=== PATIENT | female | born 1965 | race Caucasian/White ===

== ENCOUNTER → 2017-03-30 | Outpatient (CLI) | payer OTHER ==
[~2017-03-30] MED LIST: 00186-0372-20 IH; DOXYCYCLINE 10100 MG PO; INFANTS AQU400 IU/ML PO; KLOR-CON 1010 MEQ PO; LASIX 20MG TABL20 MG PO; MUCINEX 60600 MG/TA1 PO; PERCOCET 325 MG1 TA2 PO; SINGULAIR 110 MG/TAB PO; ULTRAM 50MG TAB50 MG PO; ZYRTEC ALLERGY10 MG PO
[2017-04-01 13:51] LABS: IMMUNO G SUBCLASS 3 30.1 mg/dL (()); IMMUNO G SUBCLASS 4 39.5 mg/dL (())
== END ==
LOC: COL.LAB 15:39
PROVIDERS: Otolaryngology
DX: Z01.89 Encounter for other specified special examinations (principal)

== ENCOUNTER 2018-06-10 09:30 | Emergency (ER) | payer OTHER ==
[~2018-06-10] VITALS: Ht 170.2 cm; Wt 100.0 kg
[2018-06-10 09:36] VITALS: BP 153/97; TEMP 99
[2018-06-10] MEDS ORDERED: PREDNISONE20 MG PO (10:07)
[2018-06-10] MEDS ORDERED: CEFTIN500 MG PO (10:08)
[2018-06-10 11:09] VITALS: PULSE 101
== END 2018-06-10 11:10 | disposition home or self-care (01) ==
LOC: COL.ER 09:30
DX: R06.00 Dyspnea, unspecified (principal); T36.1X5A Adverse effect of cephalosporins and other beta-lactam antibiotics, initial encounter; K21.9 Gastro-esophageal reflux disease without esophagitis; G47.30 Sleep apnea, unspecified; Z88.1 Allergy status to other antibiotic agents; Z88.2 Allergy status to sulfonamides

== ENCOUNTER 2019-06-16 11:10 | Emergency (ER) | payer BC ==
[~2019-06-16] VITALS: Ht 170.2 cm; Wt 104.5 kg
[~2019-06-16 11:10] MED LIST changes: +CEFTIN500 MG PO; +PREDNISONE20 MG PO
[2019-06-16 11:23] VITALS: BP 114/58
[2019-06-16] MEDS ORDERED: PRILOTC PO (12:04)
[2019-06-16] MEDS ORDERED: NORCO 325 MG-51 TAB PO (13:14)
[2019-06-16 13:34] VITALS: PULSE 66; TEMP 98.1
== END 2019-06-16 14:21 | disposition home or self-care (01) ==
LOC: COL.ER 11:10
DX: S83.92XA Sprain of unspecified site of left knee, initial encounter (principal); J45.909 Unspecified asthma, uncomplicated; Z88.1 Allergy status to other antibiotic agents; X50.1XXA Overexertion from prolonged static or awkward postures, initial encounter

== ENCOUNTER 2020-03-12 16:42 | Emergency (ER) | payer BC ==
[~2020-03-12] VITALS: Ht 167.6 cm; Wt 104.5 kg
[~2020-03-12 16:42] MED LIST changes: +NORCO 325 MG-51 TAB PO; +PRILOTC PO
[2020-03-12 16:47] VITALS: TEMP 98.2
[2020-03-12] MEDS ORDERED: VITAMIN D32000 I1 PO (17:12)
[2020-03-12] MEDS ORDERED: PEPCID 20MG TAB20 MG PO (17:14)
[2020-03-12] MEDS ORDERED: NASACORT OTC NS (17:15)
[2020-03-12] MEDS ORDERED: KRILL OIL 3001 EACH PO (17:15)
[2020-03-12] MEDS ORDERED: PREDNISONE20 MG PO (17:43)
[2020-03-12 19:02] VITALS: BP 125/78; PULSE 83
== END 2020-03-12 19:02 | disposition home or self-care (01) ==
LOC: COL.ER 16:42
DX: T78.40XA Allergy, unspecified, initial encounter (principal); J45.909 Unspecified asthma, uncomplicated
CPT/HCPCS: J1200; J2930; J7030

== ENCOUNTER → 2021-03-10 | Outpatient (CLI) | payer BC ==
[~2021-03-10] MED LIST changes: +KRILL OIL 3001 EACH PO; +NASACORT OTC NS; +PEPCID 20MG TAB20 MG PO; +VITAMIN D32000 I1 PO
== END ==
LOC: MC.RAD 14:08
DX: Z12.31 Encounter for screening mammogram for malignant neoplasm of breast (principal)

== ENCOUNTER 2022-01-17 22:27 | Emergency (ER) | payer BC ==
[~2022-01-17] VITALS: Ht 167.6 cm; Wt 104.5 kg
[2022-01-17 22:34] VITALS: TEMP 98
[2022-01-17 23:00] LABS: BASO # 0.1 K/mm3 (0.0-0.2); BASO % 0.5 % (0.0-2.0); EOS # 0.2 K/mm3 (0.0-0.7); EOS % 1.6 % (0.0-4.0); GRAN # 7.2 K/mm3 (1.4-6.5); HEMATOCRIT 40.9 % (37.0-47.0); HEMOGLOBIN 13.9 g/dl (12.5-16.0); LYMPH # 3.4 K/mm3 (1.2-3.4); LYMPH % 29.3 % (20.0-51.0); MEAN CELL VOLUME 93 fl (80.0-100.0); MEAN CORPUSCULAR HEMOGLOBIN 32 pg (27-31); MEAN CORPUSCULAR HGB CONC 34 g/dl (33.0-37.0); MEAN PLATELET VOLUME 9.8 fl (7.4-10.4); MONO # 0.7 K/mm3 (0.1-0.6); MONO % 6.2 % (1.7-9.3); PLATELET COUNT 313 K/mm3 (130-400); RED BLOOD COUNT 4.39 M/mm3 (4.10-5.30); REDCELL DISTRIBUTION WIDTH-CV 12.9 % (11.5-14.5)
[2022-01-17 23:16] LABS: ALBUMIN 3.8 gm/dL (3.5-5.0); BILIRUBIN,TOTAL 0.2 mg/dL (0.2-1.2); C-REACTIVE PROTEIN 0.85 mg/dL (0.00-0.50); CALCIUM 9.3 mg/dL (8.4-10.2); CREATININE, serum 0.81 mg/dL (0.57-1.11); TOTAL PROTEIN 7.3 gm/dL (6.2-8.1)
[2022-01-18 00:29] LABS: COLLECTION METHOD CLEAN CATCH
[2022-01-18 00:34] LABS: MUCOUS Present (NOT PRESENT); PH 5 (5-8); SQUAMOUS EPITHELIAL 0-2 /hpf (0-10); URINE APPEARANCE Clear (CLEAR/HAZY); URINE BACTERIA Rare /hpf (NONE SEEN); URINE BILIRUBIN Negative (NEGATIVE); URINE BLOOD Negative (NEGATIVE); URINE COLOR Yellow (YELLOW); URINE GLUCOSE Negative (NEGATIVE); URINE KETONE Negative (NEGATIVE); URINE LEUKOCYTE ESTERASE Negative (NEGATIVE); URINE NITRATE Negative (NEGATIVE); URINE PROTEIN(semi-quant) Negative (NEGATIVE); URINE RBC 0-2 /hpf (0-2); URINE UROBILINOGEN Negative (NEGATIVE)
[2022-01-18 01:14] VITALS: BP 138/77; PULSE 79
== END 2022-01-18 01:27 | disposition home or self-care (01) ==
LOC: COL.ER 22:27
PROVIDERS: Family Medicine
DX: K80.50 Calculus of bile duct without cholangitis or cholecystitis without obstruction (principal)
CPT/HCPCS: J2270; J2405; J7120; Q9967

== ENCOUNTER → 2022-02-17 | Outpatient (CLI) | payer BC | LOC: COL.RAD 08:01 | DX: K80.20 Calculus of gallbladder without cholecystitis without obstruction (principal) ==

== ENCOUNTER 2022-03-18 08:18 | Day surgery (SDC) | payer BC ==
[~2022-03-18] VITALS: Ht 167.6 cm; Wt 101.6 kg
[2022-03-18] MEDS ORDERED: PROBIOTIC BLEN1 EACH PO (09:51)
[2022-03-18] MEDS ORDERED: METAMUCIL MUL0.52 GM PO (09:52)
[2022-03-18] MEDS ORDERED: VITAMIN B COMPL1 T16 PO (09:53)
[2022-03-18] MEDS ORDERED: PROVENTIL0.09 MG/A1 IH (09:54)
[2022-03-18] MEDS ORDERED: 00186-0372-20 IH (10:00)
[2022-03-18] MEDS ORDERED: NORCO 325 MG-51 TAB PO (11:11)
[2022-03-18 11:52] VITALS: BP 129/66; PULSE 79; TEMP 98.3
[2022-03-18 12:20] VITALS: BP 120/54; PULSE 77; TEMP 97.4
[2022-03-18 12:35] VITALS: BP 99/54; PULSE 75
[2022-03-18 12:44] VITALS: TEMP 97.2
[2022-03-18 12:50] VITALS: BP 102/55; PULSE 70
[2022-03-18 13:05] VITALS: BP 106/56; PULSE 72
--- NOTE | 2022-03-18 15:17 | NUR ---
1220 PT RETURNED TO [facility]AY [facility] VIA CART. DROWSY, BUT ORIENTED. MONITORS ATTACHED, INTERVALS AND ALARMS SET. VSS. JUICE PROVIDED. PT ALLOWED TO SLEEP . PT DENIES NAUSEA, REPORTS MILD PAIN IN RIGHT ABDOMEN. 1235 PT LAYING IN BED WITH EYES CLOSED. OPENS EYE AND RESPONDS TO NAME. VSS. BP LOW, PT REPORTS THIS IS NORMAL BP WHEN AT HOME. TOLERATING JUICE WELL. PUDDING PROVIDED. 1250 PT VSS. TOLERATING FOOD AND DRINK WELL. PT REPORTS MILD PAIN IN TOLERABLE. 1305 VSS. PT TOLERATING FOOD AND DRINK WELL. PT ALLOWED TO REST. 1421 PT UP TO RESTROOM. ABLE TO VOID WITHOUT DIFFICULTY. IV REMOVED WITHOUT COMPLICATION. PT ALLOWED TO DRESS. 1435 PT REPORTS NAUSEA AND HAS VOMITED. PT RECLINED IN CHAIR, EMESIS BAG SUPPLIED, COOL RAG APPLIED TO HEAD. 1445 PT REPORTS NAUSEA IS TOLERABLE AND REQUEST TO BE TAKEN TO VEHICLE. 1450 PT TRANSFERED TO PERSONAL VEHICLE VIA WHEEL CHAIR TO BE DRIVEN HOME BY .
== END 2022-03-18 15:15 | disposition home or self-care (01) ==
LOC: SDCO 08:18
DX: K80.10 Calculus of gallbladder with chronic cholecystitis without obstruction (principal); K21.9 Gastro-esophageal reflux disease without esophagitis
CPT/HCPCS: J0690; J1100; J1170; J1885; J2405; J2704; J3010; J7120

== ENCOUNTER → 2022-04-05 | Outpatient (CLI) | payer BC ==
[~2022-04-05] MED LIST changes: +METAMUCIL MUL0.52 GM PO; +PROBIOTIC BLEN1 EACH PO; +PROVENTIL0.09 MG/A1 IH; +VITAMIN B COMPL1 T16 PO
== END ==
LOC: MC.RAD 03-24 14:45
DX: Z12.31 Encounter for screening mammogram for malignant neoplasm of breast (principal)

== ENCOUNTER → 2024-07-04 | Outpatient (CLI) | payer BC | LOC: MC.RAD 14:42 | DX: Z12.31 Encounter for screening mammogram for malignant neoplasm of breast (principal) ==

== ENCOUNTER 2024-08-28 21:17 | Emergency (ER) | payer BC ==
[~2024-08-28] VITALS: Ht 167.6 cm; Wt 127.3 kg
[2024-08-28 21:38] VITALS: TEMP 98
[2024-08-28] MEDS ORDERED: PREDNISONE20 MG PO (22:51)
[2024-08-28] MEDS ORDERED: predniSONE 20 MG TAB PO ONE (23:00)
[2024-08-28 23:35] VITALS: BP 132/77; PULSE 85
== END 2024-08-28 22:35 | disposition home or self-care (01) ==
LOC: COL.ER 21:17
DX: M25.532 Pain in left wrist (principal)
CPT/HCPCS: J7512